=== PATIENT | female | born 1975 | race Caucasian/White ===

== ENCOUNTER 2018-08-29 09:39 | Emergency (ER) | payer MEDICAID ==
[~2018-08-29] VITALS: Ht 149.9 cm; Wt 61.9 kg
--- NOTE | 2018-08-29 10:20 | NUR ---
Pt to ER for MHA reported to be 8 days in length w/ intermittent nausea. Hx MHA & took imitrex w/out relief. Room dimmed for comfort.
[2018-08-29] MEDS ORDERED: KETOROLAC 30 MG/1 ML ONE (10:27)
[2018-08-29] MEDS ORDERED: DIPHENHYDRAMINE 50 MG/ML, 1ML ONE (10:27)
[2018-08-29] MEDS ORDERED: METOCLOPRAMIDE 5 MG/ML, 2ML ONE (10:27)
[2018-08-29] MEDS ORDERED: KETOROLAC 30 MG/1 ML IV ONE (10:30)
[2018-08-29] MEDS ORDERED: DIPHENHYDRAMINE 50 MG/ML, 1ML IVPush ONE (10:30)
[2018-08-29] MEDS ORDERED: METOCLOPRAMIDE 5 MG/ML, 2ML IVPush ONE (10:30)
[2018-08-29] MEDS ORDERED: SODIUM CHLORIDE FLUSH 10ML SYR IVF ONE (10:30)
--- NOTE | 2018-08-29 10:45 | NUR ---
IV est, medicated as per emar for 8/10 VARGHESE. Placed on continuous pulse ox, room darkened, door closed, call light within reach.
--- NOTE | 2018-08-29 11:26 | NUR ---
Reports VARGHESE improved to 610 & feels she is ready to be d/c home. Katia po fluids.
[2018-08-29 11:50] VITALS: BP 104/51
--- NOTE | 2018-08-29 11:50 | NUR ---
Patient/Caregiver given discharge instructions and they have confirmed that they understand the instructions. Patient ambulatory with steady gait.
== END 2018-08-29 11:51 | disposition home or self-care (01) ==
LOC: ED 10:26
DX: G43.909 Migraine, unspecified, not intractable, without status migrainosus (principal); M54.5 Low back pain; F17.200 Nicotine dependence, unspecified, uncomplicated; R19.7 Diarrhea, unspecified
CPT/HCPCS: 96374; 96375; 99283; J1200; J1885; J2765